=== PATIENT | female | born 1985 | race Caucasian/White ===

== ENCOUNTER → 2016-12-22 | Outpatient (CLI) | payer OTHER ==
[~2016-12-22] MED LIST: IBUP-1050 PO; RANI150T3 PO
[2016-12-22 15:13] LABS: BENZODIAZEPINE, URINE NEG (NEG); COCAINE,URINE NEG (NEG); PHENCYCLIDINE, URINE NEG (NEG)
== END | disposition home or self-care (01) ==
LOC: C.LABBFT 11:26
PROVIDERS: ATTEND Physician Assistant Medical
DX: Z00.00 Encounter for general adult medical examination without abnormal findings (principal); Z11.59 Encounter for screening for other viral diseases